=== PATIENT | male | born 1995 | race Caucasian/White ===

== ENCOUNTER 2018-10-21 13:58 | Outpatient (CLI) | payer OTHER ==
--- NOTE | 2018-10-21 14:27 | RAD ---
CHEST 2 VIEWS: Date: 10/21/18 COMPARISON: None. HISTORY: Shortness of breath. FINDINGS: There is no pneumothorax or pleural fluid, and no focal consolidation or alveolar edema. Heart and me diastinal contours appear within normal limits. The interspace between the posterior aspect of the left sixth and seventh ribs is narrowed. The sixth rib on the left may be hypoplastic. This could be congenital in nature or could be on the basis of p rior injury. There is subtle upper/mid thoracic scoliosis as well. IMPRESSION: No acute findings. Incidental osseous findings as detailed above. POS: [facility]
== END 2018-10-21 13:59 | disposition home or self-care (01) ==
LOC: RAD 13:58
PROVIDERS: ATTEND Internal Medicine Critical Care Medicine
DX: R06.00 Dyspnea, unspecified (principal)
CPT/HCPCS: 71046